=== PATIENT | female | born 1990 | race Caucasian/White ===

== ENCOUNTER 2016-07-27 15:31 | Emergency (ER) | payer OTHER ==
[~2016-07-27] VITALS: Ht 160 cm; Wt 54.4 kg
[2016-07-27] MEDS ORDERED: EFFE150C PO (16:19)
[2016-07-27] MEDS ORDERED: NICOTINE 21MG/24HR 1 EA TRANSDERMAL TD ONE (19:45)
[2016-07-28 01:40] VITALS: BP 113/59
== END 2016-07-28 01:47 ==
LOC: EDBD 15:31 → M ED 17:59
DX: T50.902A Poisoning by unspecified drugs, medicaments and biological substances, intentional self-harm, initial encounter (principal); Y92.9 Unspecified place or not applicable; Y93.9 Activity, unspecified; Z79.899 Other long term (current) drug therapy; Z88.6 Allergy status to analgesic agent